=== PATIENT | male | born 1970 | race Caucasian/White ===

== ENCOUNTER → 2019-04-29 | Outpatient (CLI) | payer BC ==
[2019-04-29 16:23] LABS: African American GFR (CKD) >90 (>60 ml/min/1.73 sqM); Blood Urea Nitrogen 16 mg/dL (9-20); Non-African American GFR(CKD) >90 (>60 ml/min/1.73 sqM)
--- NOTE | 2019-04-29 22:07 | CT ---
EXAMINATION TYPE: CT abdomen pelvis wo/w con DATE OF EXAM: 04/29/2019 COMPARISON: None. HISTORY: Bilateral renal cysts. Nocturia, abdominal pain for [address] DLP: 4769.10 mGycm, Automated Exposure Control for Dose Reduction was Utilized. CONTRAST: CT scan of the abdomen and pelvis is performed with oral and without and with IV Contrast, patient in jected with 100 mL of Isovue 300. FINDINGS: LUNG BASES: Some mild scattered areas of linear scarring and/or atelectasis throughout the visualized mid to lower lungs. LIVER/GB: Visualized liver is markedly hypodense consistent with prominent diffuse fatty infiltration on noncontrast CT. PANCREAS: No significant abnormality is seen. SPLEEN: Splenomegaly is noted measuring 16.8 cm long axis I/39. ADRENALS: No significant abnormality is seen. KIDNEYS: Noncontrast images show no renal calculi bilaterally. Postcontrast images show symmetric cor tical medullary uptake and excretion without hydronephrosis seen bilaterally. There is 1.2 cm rounded low dense lesion left kidney laterally mid to lower pole level seen best on axial series 9 image 59 thought to reflect simple thin-walled cyst. Anteriorly midpole level right kidney there is 7.0 x 6.8 cm x 7.1 cm Canal: Dimension axial image 58 and coronal image 56 then calcified wall cyst without jaclyn picious nodularity or thickened septa or suspicious enhancement. Adjacent subcentimeter simple appear ing thin-walled cyst posterior lower pole right kidney image 66 series 9 is noted. Urinary bladder wi thin normal limits without suspicious mass or wall thickening. BOWEL: Oral contrast reaches level of the transverse colon. No suspicious small or large bowel dilata tion. PROSTATE/SEMINAL VESICLES: No gross abnormality seen. LYMPH NODES: No greater than 1cm abdominal or pelvic lymph nodes are appreciated. OSSEOUS STRUCTURES: Mild facet arthropathy lower lumbar levels. Mild to moderate axial joint space lo ss both hips. OTHER: Small fat-containing umbilical hernia. IMPRESSION: 1. No significant acute finding is seen to account for patient's clinical symptoms of abdominal pain. 2. There is exophytic 7.1 cm cyst with thin calcified wall anteriorly midpole of the right kidney, German sniak 2F lesion. Imaging surveillance advised.
== END | disposition home or self-care (01) ==
LOC: RADCTMAIN 14:38
PROVIDERS: ATTEND Urology
DX: N28.1 Cyst of kidney, acquired (principal); R35.1 Nocturia
CPT/HCPCS: 82565; 84520; 74178; 36415; Q9967

== ENCOUNTER → 2019-10-10 | Outpatient (CLI) | payer BC ==
[2019-10-10 10:05] LABS: African American GFR (CKD) >90 (>60 ml/min/1.73 sqM); Blood Urea Nitrogen 18 mg/dL (9-20); Non-African American GFR(CKD) 79 (>60 ml/min/1.73 sqM)
--- NOTE | 2019-10-12 18:37 | CT ---
EXAMINATION TYPE: CT abdomen wo/w con DATE OF EXAM: 10/10/2019 COMPARISON: CT abdomen pelvis 04/29/2019 HISTORY: RIGHT side abdominal pain, renal cyst CT DLP: 3928.8 mGycm Automated exposure control for dose reduction was used. TECHNIQUE: Multiphasic helical acquisition of images was performed from the lung bases through the t op of iliac crest to include entire abdomen. CONTRAST: Performed with Oral Contrast and with IV Contrast, patient injected with 100 mL of Isovue 300. FINDINGS: LUNG BASES: 3 mm pulmonary nodule of the right lower lobe (7:5). LIVER/GB: Normal. PANCREAS: Normal. SPLEEN: Splenomegaly measures 15.6 cm in AP dimension. No focal lesion. ADRENALS: Normal. KIDNEYS: No hydronephrosis or hydroureter. There is an unchanged round 6.8 x 7.2 x 7.7 cm homogenous cyst of the right interpolar kidney with thin peripheral calcification (6:48), with Hounsfield units 13 on noncontrast imaging and Hounsfield units 15 on portal venous phase. No suspicious nodularity or septations are seen. Additional subcentimeter cyst of the right renal lower pole is unchanged (8:53) . Left renal 1.3 cm lower pole cyst unchanged (8:50). BOWEL: No evidence of bowel obstruction. LYMPH NODES: No lymphadenopathy. PERITONEUM: No free air is visualized. No free fluid. Tiny fat-containing umbilical hernia. VASCULATURE: No abdominal aortic aneurysm. OSSEOUS STRUCTURES: No aggressive osseous destructive lesions. IMPRESSION: 7.7 cm homogenous right renal cystic mass. Per 2019 Bosniak classification, this is a Bosniak 2 renal cystic mass, likely benign and requires no further follow-up.
== END | disposition home or self-care (01) ==
LOC: RADCTMAIN 09:26
PROVIDERS: ATTEND Urology
DX: N28.1 Cyst of kidney, acquired (principal)
CPT/HCPCS: 82565; 84520; 74170; 36415; Q9967

== ENCOUNTER 2020-10-05 17:31 | Emergency (ER) | payer BC ==
[2020-10-05 17:49] VITALS: TEMP 98.1
[2020-10-05] MEDS ORDERED: KETOROLAC 15 MG/ML 1 ML VIAL IVP STA (18:50)
--- NOTE | 2020-10-05 19:09 | ED ---
General Adult HPI - General Chief complaint: Abdominal Pain Stated complaint: right side pain Time Seen by Provider: 10/05/20 17:45 Source: patient, RN notes reviewed, old records reviewed Mode of arrival: ambulatory Limitations: no limitations - History of Present Illness Initial comments: This is a 49-year-old male who presents emergency Department complaining of right upper quadrant abdominal pain. Patient states he's been having this intermittent abdominal pain for last year and a half. He's been worked up by his primary and urology and they have not found a source of his pain. Patient states over the week and the pain got substantially worse in the right upper quadrant and then last night it was so bad he couldn't even sleep. Patient de nies any nausea vomiting or diarrhea. Patient denies fever chills or cough. Patient denies any chest pain difficulty breathing shortness of breath. Patient denies any injury. Patient states there is nothing he can do to make it come on or go away. Patient states palpating the area definitely makes the pain worse. Patient denies any dysuria hematuria urinary frequency. - Related Data Home Medications Medication Instructions Recorded Confirmed Aspirin EC [Ecotrin Low Dose] 81 mg PO DAILY 10/05/20 10/05/20 Glimepiride [Amaryl] 2 mg PO DAILY 10/05/20 10/05/20 Allergies Allergy/AdvReac Type Severity Reaction Status Date / Time No Known Allergies Allergy Unverified 10/05/20 20:08 Review of Systems ROS Statement: Those systems with pertinent positive or pertinent negative responses have been documented in the HPI. ROS Other: All systems not noted in ROS Statement are negative. Past Medical History Past Medical History: Diabetes Mellitus History of Any Multi-Drug Resistant Organisms: None Reported Past Surgical History: No Surgical Hx Reported Smoking Status: Never smoker Past Alcohol Use History: None Reported Past Drug Use History: None Reported General Exam - General Exam Comments Initial Comments: GENERAL: Patient is well-developed and well-nourished. Patient is nontoxic and well- hydrated and is in mild distress. ENT: Neck is soft and supple. No significant lymphadenopathy is noted. Oropharynx is clear. Moist mucous membranes. Neck has full range of motion without eliciting any pain. EYES: The sclera were anicteric and conjunctiva were pink and moist. Extraocular movements were intact and pupils were equal round and reactive to light. Eyelids were unremarkable. PULMONARY: Unlabored respirations. Good breath sounds bilaterally. No audible rales rhonchi or wheezing was noted. CARDIOVASCULAR: There is a regular rate and rhythm without any murmurs gallops or rubs. ABDOMEN: Soft and nontender with normal bowel sounds. Right upper quadrant and right flank pain SKIN: Skin is clear with no lesions or rashes and otherwise unremarkable. NEUROLOGIC: Patient is alert and oriented x3. Cranial nerves II through XII are grossly intact. Motor and sensory are also intact. Normal speech, volume and content. Symmetrical smile. MUSCULOSKELETAL: Normal extremities with adequate strength and full range of motion. No lower extremity swelling or edema. No calf tenderness. LYMPHATICS: No significant lymphadenopathy is noted PSYCHIATRIC: Normal psychiatric evaluation. Limitations: no limitations Course Vital Signs 10/05/20 10/05/20 17:45 19:35 Temperature 98.1 F Pulse Rate 70 63 Respiratory 20 18 Rate Blood Pressure 151/92 118/83 O2 Sat by Pulse 97 94 L Oximetry Medical Decision Making - Medical Decision Making Patient has had this pain for urinary half he's had 2 previous CAT scans. I suggested the patient stay overnight to be seen by a surgeon in the polarity tester and he actually refused. tried to convince him to stay as well and he refused. - Lab Data Result diagrams: 10/05/20 19:08 10/05/20 19:08 Lab Results 10/05/20 10/05/20 10/05/20 Range/Units 19:08 19:08 19:08 WBC 8.8 (3.8-10.6) k/uL RBC 5.58 (4.30-5.90) m/uL Hgb 16.6 (13.0-17.5) gm/dL Hct 48.8 (39.0-53.0) % MCV 87.4 (80.0-100.0) fL MCH 29.8 (25.0-35.0) pg MCHC 34.1 (31.0-37.0) g/dL RDW 15.3 (11.5-15.5) % Plt Count 246 (150-450) k/uL MPV 8.8 Neutrophils % 75 % Lymphocytes % 16 % Monocytes % 5 % Eosinophils % 1 % Basophils % 1 % Neutrophils # 6.6 (1.3-7.7) k/uL Lymphocytes # 1.4 (1.0-4.8) k/uL Monocytes # 0.5 (0-1.0) k/uL Eosinophils # 0.1 (0-0.7) k/uL Basophils # 0.1 (0-0.2) k/uL Sodium 138 (137-145) mmol/L Potassium 4.0 (3.5-5.1) mmol/L Chloride 104 (98-107) mmol/L Carbon Dioxide 24 (22-30) mmol/L Anion Gap 10 mmol/L BUN 15 (9-20) mg/dL Creatinine 1.04 (0.66-1.25) mg/dL Est GFR (CKD-EPI)AfAm >90 (>60 ml/min/1.73 sqM) Est GFR (CKD-EPI)NonAf 85 (>60 ml/min/1.73 sqM) Glucose 153 H (74-99) mg/dL Plasma Lactic Acid Bartolome 0.9 (0.7-2.0) mmol/L Calcium 9.3 (8.4-10.2) mg/dL Total Bilirubin 0.8 (0.2-1.3) mg/dL AST 29 (17-59) U/L ALT 37 (4-49) U/L Alkaline Phosphatase 73 (38-126) U/L Total Protein 7.3 (6.3-8.2) g/dL Albumin 4.6 (3.5-5.0) g/dL Amylase 51 (30-110) U/L Lipase 68 (23-300) U/L Disposition Clinical Impression: Chronic abdominal pain Disposition: HOME SELF-CARE Instructions (If sedation given, give patient instructions): Abdominal Pain (ED) Is patient prescribed a controlled substance at d/c from ED?: No Referrals: Edmundo Bucio MD [STAFF PHYSICIAN] - 1-2 days Time of Disposition: 20:13
[2020-10-05 19:22] LABS: Basophils # (A) 0.1 k/uL (0-0.2); Basophils % (A) 1 %; Eosinophils # (A) 0.1 k/uL (0-0.7); Eosinophils % (A) 1 %; HCT 48.8 % (39.0-53.0); HGB 16.6 gm/dL (13.0-17.5); Lymphocytes # (A) 1.4 k/uL (1.0-4.8); Lymphocytes % (A) 16 %; MCH 29.8 pg (25.0-35.0); MCHC 34.1 g/dL (31.0-37.0); MCV 87.4 fL (80.0-100.0); Mean Platelet Volume 8.8; Monocytes # (A) 0.5 k/uL (0-1.0); Monocytes % (A) 5 %; Neutrophils # (A) 6.6 k/uL (1.3-7.7); Neutrophils % (A) 75 %; Platelet Count 246 k/uL (150-450); RBC 5.58 m/uL (4.30-5.90); RDW 15.3 % (11.5-15.5); WBC 8.8 k/uL (3.8-10.6)
[2020-10-05 19:33] LABS: ALT 37 U/L (4-49); AST 29 U/L (17-59); African American GFR (CKD) >90 (>60 ml/min/1.73 sqM); Albumin 4.6 g/dL (3.5-5.0); Alkaline Phosphatase 73 U/L (38-126); Amylase 51 U/L (30-110); Anion Gap 10 mmol/L; Blood Urea Nitrogen 15 mg/dL (9-20); Calcium 9.3 mg/dL (8.4-10.2); Carbon Dioxide 24 mmol/L (22-30); Chloride 104 mmol/L (98-107); Glucose 153 mg/dL (74-99); Lipase 68 U/L (23-300); Non-African American GFR(CKD) 85 (>60 ml/min/1.73 sqM); Sodium 138 mmol/L (137-145); Total Bilirubin 0.8 mg/dL (0.2-1.3); Total Protein 7.3 g/dL (6.3-8.2)
[2020-10-05 19:36] VITALS: BP 118/83; PULSE 63; RESP 18
== END 2020-10-05 20:40 | disposition home or self-care (01) ==
LOC: EC 17:31
DX: R10.11 Right upper quadrant pain (principal); G89.29 Other chronic pain; E11.9 Type 2 diabetes mellitus without complications; Z79.82 Long term (current) use of aspirin; Z79.84 Long term (current) use of oral hypoglycemic drugs
CPT/HCPCS: 99284; 36415; 80053; 82150; 83605; 83690; 85025; 96374; J1885

== ENCOUNTER 2020-11-04 07:01 | Day surgery (SDC) | payer BC ==
[2020-11-02 15:04] VITALS: BMI 46.8
[~2020-11-04 07:01] MED LIST: LACTATED RINGERS 1,000 ML IV SCH
[2020-11-04] MEDS ORDERED: LIDOCAINE 1% (10MG/ML) FOR IV START INTRADERMA ONE (07:35)
[2020-11-04 07:37] VITALS: TEMP 98.1
[2020-11-04 07:42] LABS: Glucose,Whole Blood 143 mg/dL (75-99)
[2020-11-04] MEDS ORDERED: PROPOFOL 10 MG/ML 20 ML VIAL IV ONE (08:21)
--- NOTE | 2020-11-04 08:24 | P.GSHP ---
History of Present Illness H&P Date: 11/04/20 Chief Complaint: Gastric pain This a 49-year-old male who's had complaints of epigastric pain. Patient resents today for EGD. To rule out gastritis. Past Medical History Past Medical History: Diabetes Mellitus Additional Past Medical History / Comment(s): pain in right side of abd. for last year or so History of Any Multi-Drug Resistant Organisms: None Reported Past Surgical History: Orthopedic Surgery, Tonsillectomy Additional Past Surgical History / Comment(s): CTS valeria Past Anesthesia/Blood Transfusion Reactions: No Reported Reaction Smoking Status: Never smoker Past Alcohol Use History: None Reported Past Drug Use History: None Reported Medications and Allergies Home Medications Medication Instructions Recorded Confirmed Type Aspirin EC [Ecotrin Low Dose] 81 mg PO DAILY 10/05/20 11/02/20 History Glimepiride [Amaryl] 2 mg PO DAILY 10/05/20 11/02/20 History Allergies Allergy/AdvReac Type Severity Reaction Status Date / Time No Known Allergies Allergy Unverified 11/02/20 15:05 Surgical - Exam Vital Signs Temp 98.1 F 11/04/20 07:30 - General well developed, well nourished, no distress - Eyes PERRL - ENT normal pinna - Neck no masses - Respiratory normal expansion - Cardiovascular Rhythm: regular - Abdomen Abdomen: soft, non tender Results - Labs Abnormal Lab Results - Last 24 Hours (Table) 11/04/20 Range/Units 07:31 POC Glucose (mg/dL) 143 H (75-99) mg/dL Assessment and Plan Assessment: Epigastric dull pain. We'll perform EGD.
--- NOTE | 2020-11-04 08:30 | P.OP ---
Date of Procedure: 11/04/20 Preoperative Diagnosis: Epigastric pain Postoperative Diagnosis: Antral gastritis Procedure(s) Performed: EGD Anesthesia: MAC Surgeon: Edmundo Bucio Pathology: none sent Condition: stable Description of Procedure: Patient's placed on the endoscopy table in the lateral position. He received IV sedation. The gastroscope was oropharynx past esophagus and stomach. Scope was placed through the pylorus. The first and second portion of duodenum appeared normal. Scope summer back the antrum this. Mildly inflamed. A biopsies performed. The scope was then retroflexed and the remainder stomach appeared normal. There was no significant hiatal hernia. The GE junction was at 40 cm the distal esophagus appeared normal. The proximal esophagus appeared normal. Scope was withdrawn for patient.
[2020-11-04 08:58] VITALS: BP 126/86; PULSE 62; RESP 18
== END 2020-11-04 09:12 | disposition home or self-care (01) ==
LOC: ORWHC2ENDO 07:01
PROVIDERS: ATTEND Surgery
DX: K29.50 Unspecified chronic gastritis without bleeding (principal); E11.9 Type 2 diabetes mellitus without complications; Z79.82 Long term (current) use of aspirin; Z79.899 Other long term (current) drug therapy
CPT/HCPCS: 88305; 43239; J2704

== ENCOUNTER → 2020-11-08 | Outpatient (CLI) | payer BC ==
--- NOTE | 2020-11-08 15:10 | NM ---
EXAMINATION TYPE: NM hepatobiliary w CCK DATE OF EXAM: 11/08/2020 COMPARISON: NONE HISTORY: K82.8 Biliary dyskinesia TECHNIQUE: After the intravenous administration of 3.9 mCi Tc 99m Mebrofenin hepatobiliary scintigrap hy is performed. Immediate images post injection. FINDINGS: There is satisfactory initial accumulation of tracer by the liver. The gallbladder is visualized wit hin 12minutes. The small bowel activity is noted within 6 minutes. At one hour CCK was administered , patient was injected with 3.3 mcg of Kinevac, and gallbladder ejection fraction is calculated at 91 %. IMPRESSION: Hypercontractile ejection fraction
== END | disposition home or self-care (01) ==
LOC: RADNMMAIN 12:42
PROVIDERS: ATTEND Surgery
DX: K82.8 Other specified diseases of gallbladder (principal)
CPT/HCPCS: 78227; A9537; J2805

== ENCOUNTER 2020-11-24 07:20 | Day surgery (SDC) | payer BC ==
[2020-11-22 13:40] VITALS: BMI 47.5
[~2020-11-24 07:20] MED LIST changes: +ACETAMINOPHEN TAB 500 MG TAB PO PRN; +DEXAMETHASONE SOD PHOSPHATE 4 MG/ML 1 ML VIAL IV ONE; +HEPARIN SODIUM,PORCINE/PF 5,000 UNIT/0.5 ML SYRINGE SQ PRN; +LIDOCAINE 1% (10MG/ML) FOR IV START INTRADERMA PRN; +ONDANSETRON 4 MG/2 ML VIAL IVP ONE; +SCOPOLAMINE 1.5MG/72HR PATCH TRANSDERM ONE; +ceFAZolin 3 GM in SODIUM CHLORIDE 0.9% 100 ML IVPB PRN
[2020-11-24 07:56] LABS: Glucose,Whole Blood 145 mg/dL (75-99)
--- NOTE | 2020-11-24 08:48 | P.GSHP ---
History of Present Illness H&P Date: 11/24/20 Chief Complaint: Right upper quadrant pain This a 50-year-old male who presents today for laparoscopic cholecystectomy. Patient had complaints were quadrant pain. His HIDA scan shows abnormal HIDA ejection fraction consistent with choledocholithiasis and biliary hyperkinesia Past Medical History Past Medical History: Diabetes Mellitus, GERD/Reflux Additional Past Medical History / Comment(s): pain in right side of abd. for last year or so History of Any Multi-Drug Resistant Organisms: None Reported Past Surgical History: Adenoidectomy, Orthopedic Surgery, Tonsillectomy Additional Past Surgical History / Comment(s): CTS valeria Past Anesthesia/Blood Transfusion Reactions: No Reported Reaction Smoking Status: Never smoker - Past Family History Mother Family Medical History: Cancer Medications and Allergies Home Medications Medication Instructions Recorded Confirmed Type Aspirin EC [Ecotrin Low Dose] 81 mg PO DAILY 10/05/20 11/24/20 History Glimepiride [Amaryl] 2 mg PO DAILY 10/05/20 11/24/20 History Allergies Allergy/AdvReac Type Severity Reaction Status Date / Time No Known Allergies Allergy Verified 11/24/20 07:45 Surgical - Exam Vital Signs Temp Pulse Resp BP Pulse Ox 97.9 F 66 18 147/82 97 11/24/20 07:52 11/24/20 07:52 11/24/20 07:52 11/24/20 07:52 11/24/20 07:52 - General well developed, well nourished, no distress - Eyes PERRL - ENT normal pinna - Neck no masses - Respiratory normal expansion - Cardiovascular Rhythm: regular - Abdomen Abdomen: soft, non tender Results - Labs Abnormal Lab Results - Last 24 Hours (Table) 11/24/20 Range/Units 07:54 POC Glucose (mg/dL) 145 H (75-99) mg/dL Assessment and Plan Assessment: Right upper quadrant pain Chronic cholecystis We'll perform laparoscopic cholecystectomy.
[2020-11-24] MEDS ORDERED: MIDAZOLAM 2 MG/2 ML VIAL ONE (09:06)
[2020-11-24] MEDS ORDERED: SUCCINYLCHOLINE CHLORIDE 100 MG/5 ML SYR IV ONE (09:06)
[2020-11-24] MEDS ORDERED: KETOROLAC 15 MG/ML 1 ML VIAL ONE (09:06)
[2020-11-24] MEDS ORDERED: fentaNYL (PF) 50 MCG/ML 2 ML AMP ONE (09:06)
[2020-11-24] MEDS ORDERED: ROCURONIUM 10 MG/ML (5 ML VIAL) IV ONE (09:06)
[2020-11-24] MEDS ORDERED: LABETALOL 5 MG/ML VIAL MDV ONE (09:06)
[2020-11-24] MEDS ORDERED: PROPOFOL 10 MG/ML 20 ML VIAL IV ONE (09:06)
[2020-11-24] MEDS ORDERED: BUPIVACAINE (PF) 0.25% 30 ML VIAL SQ ONE (09:29)
[2020-11-24] MEDS ORDERED: LACTATED RINGERS 1,000 ML IV ONE (09:53)
--- NOTE | 2020-11-24 10:08 | P.OP ---
Date of Procedure: 11/24/20 Preoperative Diagnosis: Cholecystitis Postoperative Diagnosis: Cholecystitis Procedure(s) Performed: Laparoscopic cholecystectomy Anesthesia: ELVIRA Surgeon: Edmundo Bucio Estimated Blood Loss (ml): 5 Pathology: other (Gallbladder) Condition: stable Disposition: PACU Description of Procedure: The patient was placed on the operating table. The patient received a general endotracheal tube anesthesia. The patients abdomen was prepped and draped in the usual sterile fashion. Through an infraumbilical stab incision, the fascia of the anterior abdominal wall was grasped with a pair of Kochers and then the Veress needle was placed in the peritoneal cavity. Position of the Veress needle was confirmed with positive drop test. The abdomen was then insufflated. After adequate insufflation, the 10 mm trocar was placed in the peritoneal cavity. Following this the laparoscope was placed in the peritoneal cavity. The patient was placed in the head-up, right side up position and then a 5 mm trocar was placed in the right lateral and right subcostal position under direct visualization. A 8 mm trocar was placed in the epigastric position. The gallbladder was grasped in the fundus and infundibulum. Traction on the gallbladder was placed in the lateral and the cephalad positions. The triangle of Calot was visualized.. The cystic duct was bluntly dissected until the union of the cystic duct and common bile duct was seen. A critical view of safety was achieved. The cystic duct was then divided and sealed with the Harmonic scissors. A PDS Endoloop was then placed throughout the cystic duct stump. The cystic artery divided and sealed with the Harmonic scissors. The gallbladder was then removed from the liver bed using Harmonic scissors. The gallbladder was then extracted through the epigastric port site. Operative field was checked for any bleeding spots and Harmonic scissors was used to coagulate the liver bed. The abdomen was irrigated. The trocars were removed. The skin was closed using interrupted 3-0 Vicryl suture. Dermabond dressing were applied. The patient tolerated the procedure well.
[2020-11-24] MEDS: HYDROmorphone 0.5 MG/0.5 ML SYRINGE IVP PRN ×2 (10:11→10:21)
[2020-11-24 10:14] VITALS: TEMP 97.1
[2020-11-24 10:50] VITALS: RESP 16
[2020-11-24 11:25] VITALS: BP 118/73; PULSE 59
== END 2020-11-24 11:48 | disposition home or self-care (01) ==
LOC: OR 07:20
PROVIDERS: ATTEND Surgery
DX: K81.1 Chronic cholecystitis (principal); E11.9 Type 2 diabetes mellitus without complications; K21.9 Gastro-esophageal reflux disease without esophagitis; Z98.890 Other specified postprocedural states; Z80.9 Family history of malignant neoplasm, unspecified; Z79.84 Long term (current) use of oral hypoglycemic drugs; Z79.82 Long term (current) use of aspirin
CPT/HCPCS: 47562; J2250; J1100; J0690; J2405; J3010; J1885; J0330; J2704; J1170; J1644; 88304

== ENCOUNTER → 2021-06-29 | Outpatient (CLI) | payer BC ==
--- NOTE | 2021-06-30 03:14 | MR ---
EXAMINATION TYPE: MR brain and iac wo con DATE OF EXAM: 06/29/2021 COMPARISON: None HISTORY: Hearing loss, left side greater than right. Multiplanar multiecho imaging of the brain and posterior fossa without IV contrast. Ventricles and sulci appear normal. There is no mass effect or midline shift. Diffusion images show n o evidence of an acute infarct. No evidence of cerebral edema. Corpus callosum appears normal. There is no evidence of sellar mass. There are a few scattered white matter high signal foci in both cerebr al hemispheres that measure up to 4 mm. Total numbers less than 10. Brainstem is intact. The sella tu rcica appears normal. There is no evidence of posterior fossa mass. Internal auditory canals appear normal. No evidence of a cerebellopontine angle mass. There is no evidence of orbital mass. IMPRESSION: There are scattered small white matter high signal foci of uncertain significance. This could relate to some mild microvascular ischemia. No focal posterior fossa abnormality.
== END | disposition home or self-care (01) ==
LOC: RADMRIMAIN 16:02
PROVIDERS: ATTEND Nurse Practitioner Family
DX: H93.19 Tinnitus, unspecified ear (principal); H91.90 Unspecified hearing loss, unspecified ear
CPT/HCPCS: 70551

== ENCOUNTER 2022-07-07 07:03 | Day surgery (SDC) | payer BC ==
[2022-07-04 15:42] VITALS: BMI 45.5
[~2022-07-07 07:03] MED LIST changes: -ACETAMINOPHEN TAB 500 MG TAB PO PRN; -DEXAMETHASONE SOD PHOSPHATE 4 MG/ML 1 ML VIAL IV ONE; -HEPARIN SODIUM,PORCINE/PF 5,000 UNIT/0.5 ML SYRINGE SQ PRN; -ONDANSETRON 4 MG/2 ML VIAL IVP ONE; -SCOPOLAMINE 1.5MG/72HR PATCH TRANSDERM ONE; -ceFAZolin 3 GM in SODIUM CHLORIDE 0.9% 100 ML IVPB PRN
[2022-07-07 07:45] VITALS: RESP 16; TEMP 97.9
[2022-07-07 07:45] LABS: Glucose,Whole Blood 174 mg/dL (70-110)
[2022-07-07] MEDS ORDERED: PROPOFOL 10 MG/ML 20 ML VIAL IV ONE (07:49)
--- NOTE | 2022-07-07 08:09 | P.PCN ---
Date of Procedure: 07/07/22 Procedure(s) Performed: BRIEF HISTORY: Patient is a 51-year-old pleasant white male scheduled for an elective colonoscopy as a part of screening for colon cancer. PROCEDURE PERFORMED: Colonoscopy with snare polypectomy. PREOPERATIVE DIAGNOSIS: Screening for colon cancer. IV sedation per Anesthesia. PROCEDURE: After informed consent was obtained, the patient, was brought into the endoscopy unit. IV sedation was administered by Anesthesia under continuous monitoring. Digital rectal examination was normal. Initially the Olympus CF-160 flexible video colonoscope was then inserted in the rectum, gradually advanced into the cecum without any difficulty. Careful examination was performed as the scope was gradually being withdrawn. Ileocecal valve and the appendiceal orifice were visualized and appeared normal. Prep was excellent. Mucosa of the cecum, ascending colon, appeared normal. The transverse colon there was a 7 mm sessile polyp removed by snare polypectomy. In the descending colon there was a 1 cm polyp removed by snare polypectomy. In the sigmoid: There was a 5 mm polyp removed by snare polypectomy. Rest of the transverse colon, descending colon, sigmoid colon, and rectum appeared normal. Retroflexion was performed in the rectum and no lesions were seen. The patient tolerated the procedure well. IMPRESSION: 7 mm transverse colon polyp status post polypectomy 1 cm descending colon polyp status post polypectomy 5 mm sigmoid colon polyp status post polypectomy RECOMMENDATIONS: Findings of this examination were discussed with the patientas well as his family. He was advised to follow with the biopsy results. If the biopsy reveals adenoma he can have a repeat colonoscopy in 3 years.].
[2022-07-07 08:52] VITALS: BP 107/69; PULSE 67
== END 2022-07-07 08:55 | disposition home or self-care (01) ==
LOC: ORWHC2ENDO 07:03
PROVIDERS: ATTEND Internal Medicine Gastroenterology
DX: Z12.11 Encounter for screening for malignant neoplasm of colon (principal); D12.3 Benign neoplasm of transverse colon; D12.4 Benign neoplasm of descending colon; I10 Essential (primary) hypertension; E11.9 Type 2 diabetes mellitus without complications; K21.9 Gastro-esophageal reflux disease without esophagitis; Z79.82 Long term (current) use of aspirin; Z79.899 Other long term (current) drug therapy; Z87.891 Personal history of nicotine dependence
CPT/HCPCS: 88305; 45385; J2704